=== PATIENT | female | born 1965 | race Caucasian/White ===

== ENCOUNTER 2017-05-20 05:29 | Day surgery (SDC) | payer OTHER ==
[2017-05-17 14:17] VITALS: Ht 160 cm; Wt 75.0 kg
[2017-05-20] VITALS (13 sets, daily range): BP systolic 107–136; BP diastolic 68–84; PULSE 20–90; RESP 13–20
[~2017-05-20] VITALS: Ht 160 cm; Wt 75.0 kg
[2017-05-20] MEDS ORDERED: LOSA1TAB20 PO (06:23)
[2017-05-20] MEDS ORDERED: ALBU18HF INHALATION (06:23)
[2017-05-20] MEDS ORDERED: ACETAMINOPHEN 1000MG/100ML IV 100 ML ONE (07:08)
[2017-05-20] MEDS ORDERED: FENTAnyl 50 MCG/ML VIAL ONE (07:08)
[2017-05-20] MEDS ORDERED: PROPOFOL 20 ML ONE (07:08)
[2017-05-20] MEDS ORDERED: MIDAZOLAM 1 MG/ML 2 ML INJ ONE (07:08)
[2017-05-20] MEDS ORDERED: ONDANSETRON 4 MG INJ ONE (07:09)
[2017-05-20] MEDS ORDERED: DEXAMETHASONE 4 MG/ML 1 ML INJ ONE (07:10)
[2017-05-20] MEDS ORDERED: CEFAZOLIN 1 GM INJ ONE (07:14)
[2017-05-20] MEDS ORDERED: HYDROmorphONE (0.2 MG/ML) 10ML SYG IV PRN ×2 (08:00)
[2017-05-20] MEDS ORDERED: MEPERIDINE 25 MG INJ IV PRN (08:00)
[2017-05-20] MEDS ORDERED: FENTAnyl 50 MCG/ML VIAL IV PRN ×2 (08:00)
[2017-05-20] MEDS ORDERED: ALBUTEROL 0.083% (NEB) 2.5 MG/3 ML AMP HHN PRN (08:00)
--- NOTE | 2017-05-20 09:31 | OPR ---
Date/Time of Note Date/Time of Note DATE: 05/20/17 TIME: 09:25 Operative Report Procedure Date: May 20, 2017 Preoperative Diagnosis Menometrorrhagia, Endometrial polyp/fibroid causing vaginal bleeding. Postoperative Diagnosis Menometrorrhagia, Endometrial polyp/fibroid causing vaginal bleeding. Operation/Procedure Performed Hysteroscopy, Hysteroscopic myomectomy and polypectomy Directed Curettage of endometrium Hydrothermal Endometrial Ablation Surgeon see signature line Diagnostic Cardiac Sonographer none Anesthesia Type: general Estimated Blood Loss: minimal Transfusion none Specimen Endometrium, polyp and myoma Grafts/Implants none Tubes/Drains none Complications none Pt Condition Post Procedure: stable Disposition: PACU Procedure Description OPERATIVE FINDINGS AT SURGERY: Small submucosal myoma and 2 cm endometrial polyp. Otherwise normal endometrial cavity with atrophic endometrium. CONSENT: Please see preoperative notes from my office for the consent process. DESCRIPTION OF PROCEDURE: She was taken to the operating room and general anesthesia was induced. She was prepped and draped in the usual sterile fashion. Surgical time out was done. The patient and procedure were identified. The anterior lip of the cervic was grasped with a single-tooth tenaculum and dilated to size 6 Hegar dilators. The hysteroscope Symphion was inserted and the endometrial cavity was visualized clearly. At this time the resectoscope was inserted and the small endometrial polyp and myoma and endometrium was resected completely. The resectoscope was removed and the HTA camera inserted. Extra Tenaculum was applied to cervix. Seal check was done and passed. Ablation initiated. there was no fluid loss and ablation was not interrupted. Cooling period was done. The endometrium turned white. Camera was removed. The tenaculum was removed and there was no bleeding from the tenaculum site. The patient tolerated the procedure well. BO NEWSOME MD May 20, 2017 09:31
== END 2017-05-20 10:30 | disposition home or self-care (01) ==
LOC: SDS 05:29
PROVIDERS: ATTEND Specialist
DX: N95.0 Postmenopausal bleeding (principal); N84.0 Polyp of corpus uteri; E66.9 Obesity, unspecified; Z68.29 Body mass index [BMI] 29.0-29.9, adult
CPT/HCPCS: 58558; 88305; J0131; J0690; J1100; J1170; J2250; J2405; J3010; Z7512; Z7610

== ENCOUNTER 2018-11-21 05:42 | Day surgery (SDC) | payer OTHER ==
[~2018-11-21] VITALS: Ht 160 cm; Wt 56.8 kg
[~2018-11-21 05:42] MED LIST: ALBU18HF INHALATION; LOSA1TAB25 PO
[2018-11-21 07:19] VITALS: Ht 160 cm; Wt 56.8 kg
[2018-11-21 07:29] VITALS: BP 130/78; PULSE 74; RESP 17
[2018-11-21] MEDS ORDERED: QVAR (07:31)
--- NOTE | 2018-11-21 07:36 | PREAC ---
Date/Time of Note Date/Time of Note DATE: 11/21/18 TIME: 07:35 Anesthesia Eval and Record Evaluation Time Pre-Procedure Interview DATE: 11/21/18 TIME: 07:35 Age 53 Sex female NPO: 8 hrs Preoperative diagnosis SCREENING Planned procedure COLONOSCOPY Past Medical History Past Medical History: Includes Cardio: HTN, Dyslipidemia Pulm: Sleep Apnea, Asthma Surgery & Anesthesia Issues No known issue Meds Anticoagulation: No Beta Cosmo within 24 hr: No Reason Beta Cosmo not given: Pt. not on B-Cosmo Reported Medications [Qvar] No Conflict Check 11/21/18 Albuterol Sulfate* (Ventolin HFA*) 18 Gm Hfa.aer.ad, 2 PUFF INHALATION Q6H, #1 INHALER 05/20/17 Losartan-Hydrochlorothiazide (Losartan-HCTZ) 100-25 Mg Tab, 1 TAB PO DAILY, TAB 05/20/17 Meds reviewed: Yes Allergies Coded Allergies: codeine (Verified Allergy, Intermediate, RASH, 11/21/18) Allergies Reviewed: Yes Labs/Studies Labs Reviewed: Reviewed by anesthesiologist test: Negative Pre-procedure Exam Last vitals Vital Signs Date Temp Pulse Resp B/P (MAP) Pulse Ox O2 O2 Flow FiO2 Time Delivery Rate 11/21/18 97.8 74 17 130/78 100 Room Air 07:29 (95) Airway: Adequate mouth opening, Adequate thyromental dist Mallampati: Mallampati II Teeth: Normal Lung: Normal Heart: Normal ASA Physical Status ASA physical status: 2 Emergency: None Planned Anesthetic General/MAC: MAC Planned Pain Management Parenteral pain med Pre-operative Attestations Prior to commencing anesthesia and surgery, the patient was re-evaluated, there was verification of: *The patient's identity *The results of appropriate recent lab work and preoperative vital signs *The above evaluation not changing prior to induction *Anesthetic plan, risk benefits, alternative and complications discussed with patient/family; questions answered; patient/family understands, accepts and wishes to proceed. RACHNA BRAND Nov 21, 2018 07:36
[2018-11-21] MEDS ORDERED: PROPOFOL 60 ML ONE (07:38)
[2018-11-21] MEDS ORDERED: LIDOCAINE 2% (SDV) 5 ML INJ ONE (07:39)
[2018-11-21] MEDS ORDERED: DIPHENHYDRAMINE 50 MG INJ IV PRN (08:00)
[2018-11-21] MEDS ORDERED: ONDANSETRON 4 MG INJ IV PRN (08:00)
[2018-11-21] MEDS ORDERED: FENTAnyl 50 MCG/ML VIAL IV PRN ×2 (08:00)
[2018-11-21] MEDS ORDERED: EPHEDrine 25 MG/5 ML SYG IV PRN (08:00)
[2018-11-21] MEDS ORDERED: LABETALOL HCL 20MG INJ IV PRN (08:00)
[2018-11-21] MEDS ORDERED: MEPERIDINE 25 MG INJ IV PRN (08:00)
[2018-11-21] MEDS ORDERED: METOCLOPRAMIDE 10 MG INJ IV PRN (08:00)
[2018-11-21] MEDS ORDERED: hydrALAzine 20 MG INJ IV PRN (08:00)
--- NOTE | 2018-11-21 08:17 | PAC ---
Date/Time of Note Date/Time of Note DATE: 11/21/18 TIME: 08:17 Post-Anesthesia Notes Post-Anesthesia Note Last documented vital signs Vital Signs Date Temp Pulse Resp B/P (MAP) Pulse Ox O2 O2 Flow FiO2 Time Delivery Rate 11/21/18 97.8 74 17 130/78 100 Room Air 0817 (95) Activity: WNL Respiratory function: WNL Cardiovascular function: WNL Mental status: Baseline Pain reasonably controlled: Yes Hydration appropriate: Yes Nausea/Vomiting absent: Yes RACHNA BRAND Nov 21, 2018 08:17
[2018-11-21 08:29] VITALS: BP 121/78; RESP 16
== END 2018-11-21 13:19 | disposition home or self-care (01) ==
LOC: GIL 05:42
PROVIDERS: ATTEND Internal Medicine Gastroenterology
DX: Z12.11 Encounter for screening for malignant neoplasm of colon (principal); D12.8 Benign neoplasm of rectum; K64.9 Unspecified hemorrhoids; I10 Essential (primary) hypertension; J45.909 Unspecified asthma, uncomplicated
CPT/HCPCS: 45380; 88305; Z7610